=== PATIENT | male | born 1975 | race Caucasian/White ===

== ENCOUNTER → 2021-12-30 | Outpatient (CLI) | payer OTHER | LOC: HEART 5 16:13 | DX: R06.02 Shortness of breath (principal) | CPT/HCPCS: 94060; 94729 ==

== ENCOUNTER → 2022-06-30 | Outpatient (CLI) | payer OTHER | LOC: RAD 16:04 | DX: R06.02 Shortness of breath (principal) | CPT/HCPCS: 36600; 71046; 82803 ==